=== PATIENT | female | born 1950 | race Caucasian/White ===

== ENCOUNTER 2017-12-07 11:12 | Outpatient (CLI) | payer BC | END 2017-12-07 11:13 | disposition home or self-care (01) | LOC: BICMAMMO 11:12 | PROVIDERS: ATTEND Internal Medicine | DX: Z12.31 Encounter for screening mammogram for malignant neoplasm of breast (principal); N63.20 Unspecified lump in the left breast, unspecified quadrant; Z80.3 Family history of malignant neoplasm of breast | CPT/HCPCS: 77063; 77067 ==

== ENCOUNTER 2017-12-09 10:17 | Outpatient (CLI) | payer BC | END 2017-12-09 10:18 | disposition home or self-care (01) | LOC: BICMAMMO 10:17 | PROVIDERS: ATTEND Internal Medicine | DX: N63.20 Unspecified lump in the left breast, unspecified quadrant (principal); Z80.3 Family history of malignant neoplasm of breast | CPT/HCPCS: G0279 ==

== ENCOUNTER 2021-02-22 11:39 | Outpatient (CLI) | payer BC | END 2021-02-22 11:40 | disposition home or self-care (01) | LOC: BICMAMMO 11:39 | PROVIDERS: ATTEND Internal Medicine | DX: Z12.31 Encounter for screening mammogram for malignant neoplasm of breast (principal); Z80.3 Family history of malignant neoplasm of breast | CPT/HCPCS: 77063; 77067 ==

== ENCOUNTER 2021-05-16 10:24 | Outpatient (CLI) | payer BC | END 2021-05-16 10:25 | disposition home or self-care (01) | LOC: BICRAD 10:24 | PROVIDERS: ATTEND Internal Medicine Pulmonary Disease | DX: R06.00 Dyspnea, unspecified (principal) | CPT/HCPCS: 71046 ==

== ENCOUNTER 2022-06-20 16:45 | Outpatient (CLI) | payer BC ==
[2022-06-20 17:49] LABS: #Basophils 0.1 10x3/uL (0.0-0.2); #Eosinphils 0.2 10x3/uL (0.0-0.5); #Monocytes 0.5 10x3/uL (0.0-1.1); %Basophils 0.8 % (0.0-2.0); %Eosinophils 2.8 % (0.0-6.0); %Lymphocytes 33.5 % (18.0-47.0); %Monocytes 6.8 % (0.0-10.0); %Neutrophils 55.8 % (40.0-75.0); Hemoglobin 11.7 g/dL (12.0-15.5); Mean Corpuscular HGB CONC 33.9 g/dL (32.0-36.0); Mean Corpuscular Hemoglobin 29.9 pg (27.0-33.0); Mean Corpuscular Volume 88.2 fl (81.6-98.3); Mean Platelet Volume 9.6 fl (7.4-10.4); Platelet Count 333 10x3/uL (150-450); RBC Distribution Width 12.6 % (11.5-14.5); Red Blood Cell (RBC) Count 3.91 10x6/uL (3.90-5.03); White Blood Cell (WBC) Count 7.2 10x3/uL (3.5-10.5)
[2022-06-20 18:09] LABS: Anion Gap 14 mmol/L (10-20); BUN (Urea Nitrogen) 17 mg/dL (9.8-20.1); Calc. Creatinine Clearance 0 mL/min (70-130); Calcium 9.9 mg/dL (7.8-10.44); Carbon Dioxide 25 mmol/L (23-31); Chloride 105 mmol/L (98-107); Estimated GFR 67; Glucose 94 mg/dL (80-115); Potassium 4.7 mmol/L (3.5-5.1); Sodium 139 mmol/L (136-145)
== END 2022-06-20 16:46 | disposition home or self-care (01) ==
LOC: LABBT 16:45
PROVIDERS: ATTEND Specialist
DX: Z01.818 Encounter for other preprocedural examination (principal); C50.912 Malignant neoplasm of unspecified site of left female breast
CPT/HCPCS: 80048; 85025; 93005; 93010

== ENCOUNTER 2022-06-24 07:33 | Day surgery (SDC) | payer BC ==
[2022-06-23 11:56] VITALS: BMI 31.5
[2022-06-24] MEDS ORDERED: Acetaminophen 500 MG TAB ONE (08:45)
[2022-06-24] MEDS ORDERED: Ketorolac Tromethamine 30 MG/ML VIAL ONE (08:45)
[2022-06-24] MEDS ORDERED: EPINEPHrine 1 MG/ML AMP ONE (10:26)
[2022-06-24] MEDS ORDERED: Bupivacaine 0.25% HCL 30 ML VIAL ONE (10:26)
[2022-06-24] MEDS ORDERED: Lidocaine 1% (PF) 30 ML VIAL ONE (10:26)
[2022-06-24] MEDS ORDERED: Midazolam HCl 2 mg/2 ml Vial ONE (10:26)
[2022-06-24] MEDS ORDERED: fentaNYL Citrate/PF 100 MCG/2 ML SYRINGE ONE (10:27)
[2022-06-24] MEDS ORDERED: Sodium Chloride 0.9% 100 ML ONE (10:34)
[2022-06-24] MEDS ORDERED: CEFAZOLIN 2 GM VIAL ONE (10:34)
[2022-06-24] MEDS ORDERED: PROPOFOL 200 MG/20 ML VIAL ONE (10:50)
== END 2022-06-24 12:45 | disposition home or self-care (01) ==
LOC: SDC 07:33
PROVIDERS: ATTEND Specialist
PROC: 0JH60WZ Insertion of Totally Implantable Vascular Access Device into Chest Subcutaneous Tissue and Fascia, Open Approach (ICD-10-PCS; principal; 2022-06-24)
PROC: 02HV33Z Insertion of Infusion Device into Superior Vena Cava, Percutaneous Approach (ICD-10-PCS; principal; 2022-06-24)
DX: C50.912 Malignant neoplasm of unspecified site of left female breast (principal); I10 Essential (primary) hypertension; E78.00 Pure hypercholesterolemia, unspecified; E03.9 Hypothyroidism, unspecified; Z17.0 Estrogen receptor positive status [ER+]; Z86.16 Personal history of COVID-19; Z79.890 Hormone replacement therapy; Z79.899 Other long term (current) drug therapy; Z88.0 Allergy status to penicillin
CPT/HCPCS: 71045; C1788; J0171; J0690; J1642; J1885; J2001; J2250; J2704; J3490; S0020

== ENCOUNTER 2022-10-13 11:45 | Outpatient (CLI) | payer BC ==
[2022-10-13 13:10] LABS: Mean Corpuscular HGB CONC 34.2 g/dL (32.0-36.0); Mean Corpuscular Volume 102.3 fl (81.6-98.3); Mean Platelet Volume 9.4 fl (7.4-10.4); Platelet Count 261 10x3/uL (150-450); RBC Distribution Width 16.9 % (11.5-14.5); Red Blood Cell (RBC) Count 2.57 10x6/uL (3.90-5.03); White Blood Cell (WBC) Count 8.2 10x3/uL (3.5-10.5)
[2022-10-13 13:15] LABS: Anion Gap 14 mmol/L (10-20); BUN (Urea Nitrogen) 20 mg/dL (9.8-20.1); Calc. Creatinine Clearance 0 mL/min (70-130); Calcium 9.7 mg/dL (7.8-10.44); Carbon Dioxide 24 mmol/L (23-31); Chloride 103 mmol/L (98-107); Estimated GFR 72; Glucose 130 mg/dL (80-115); Sodium 136 mmol/L (136-145)
[2022-10-13 13:22] LABS: MDiff Complete? YES
[2022-10-13 13:25] LABS: Band 4 % (5-11); Eosinophils 1 % (0-10); Lymphocytes 25 % (21-51); Monocytes 3 % (0-10); Neutrophil 67 % (42-75)
[2022-10-13 13:26] LABS: Platelet Morphology Comment Appears Adequate
[2022-10-13 13:27] LABS: Macrocytosis SLIGHT = 6-15 cells (100X) (0-5/hpf)
== END 2022-10-13 11:46 | disposition home or self-care (01) ==
LOC: LABBT 11:45
PROVIDERS: ATTEND Specialist
DX: Z01.812 Encounter for preprocedural laboratory examination (principal); C50.912 Malignant neoplasm of unspecified site of left female breast
CPT/HCPCS: 80048; 85025

== ENCOUNTER 2022-10-23 07:48 | Day surgery (SDC) | payer BC ==
[2022-10-21 11:14] VITALS: BMI 31.5
[2022-10-23] MEDS ORDERED: Acetaminophen 500 MG TAB ONE (09:29)
[2022-10-23] MEDS ORDERED: Ketorolac Tromethamine 30 MG/ML VIAL ONE (09:29)
[2022-10-23] MEDS ORDERED: Isosulfan Blue 50 MG/5 ML VIAL ONE (09:54)
[2022-10-23] MEDS ORDERED: Bupivacaine/Epinephrine 0.25% 30 ML VIAL ONE (09:54)
[2022-10-23] MEDS ORDERED: Lidocaine 1% (PF) 30 ML VIAL ONE (09:54)
[2022-10-23] MEDS ORDERED: CEFAZOLIN 2 GM VIAL ONE (10:08)
[2022-10-23] MEDS ORDERED: Sodium Chloride 0.9% 100 ML ONE (10:08)
[2022-10-23] MEDS ORDERED: fentaNYL PF 100 MCG/2 ML SYRINGE ONE (10:11)
[2022-10-23] MEDS ORDERED: Lidocaine 2% PF 5 ML VIAL ONE (10:17)
[2022-10-23] MEDS ORDERED: PHENYLEPHRINE-NS 100 MCG/ML 10 ML SYRINGE ONE (10:24)
[2022-10-23] MEDS ORDERED: Dexamethasone 20 MG/5 ML VIAL ONE (10:24)
[2022-10-23] MEDS ORDERED: Lidocaine 1% PF 5 ML VIAL ONE (10:24)
[2022-10-23] MEDS ORDERED: PROPOFOL 200 MG/20 ML VIAL ONE (10:24)
[2022-10-23] MEDS ORDERED: Ondansetron PF 4 MG/2 ML Vial ONE (10:24)
== END 2022-10-23 13:55 | disposition home or self-care (01) ==
LOC: SDC 07:48
PROVIDERS: ATTEND Specialist
PROC: 0HBU0ZZ Excision of Left Breast, Open Approach (ICD-10-PCS; principal; 2022-10-23)
PROC: 07B60ZX Excision of Left Axillary Lymphatic, Open Approach, Diagnostic (ICD-10-PCS; principal; 2022-10-23)
DX: C50.512 Malignant neoplasm of lower-outer quadrant of left female breast (principal); I10 Essential (primary) hypertension; E78.00 Pure hypercholesterolemia, unspecified; E03.9 Hypothyroidism, unspecified; Z17.0 Estrogen receptor positive status [ER+]; Z86.16 Personal history of COVID-19; Z79.890 Hormone replacement therapy; Z79.899 Other long term (current) drug therapy; Z88.0 Allergy status to penicillin
CPT/HCPCS: 76098; 78195; 88307; 88341; 88342; A9541; C1713; J1100; J1885; J2001; J2405; J2704; J3490; Q9968

== ENCOUNTER 2022-11-11 09:35 | Day surgery (SDC) | payer BC ==
[2022-11-07 12:00] VITALS: BMI 31.5
[2022-11-11] MEDS ORDERED: Ketorolac Tromethamine 30 MG/ML VIAL ONE (10:03)
[2022-11-11] MEDS ORDERED: Acetaminophen 500 MG TAB ONE (10:03)
[2022-11-11] MEDS ORDERED: fentaNYL PF 100 MCG/2 ML SYRINGE ONE (10:49)
[2022-11-11] MEDS ORDERED: Bupivacaine/Epinephrine 0.25% 30 ML VIAL ONE (10:52)
[2022-11-11] MEDS ORDERED: CEFAZOLIN 2 GM VIAL ONE (11:01)
[2022-11-11] MEDS ORDERED: Sodium Chloride 0.9% 100 ML ONE (11:01)
[2022-11-11] MEDS ORDERED: Ondansetron PF 4 MG/2 ML Vial ONE (11:12)
[2022-11-11] MEDS ORDERED: Dexamethasone 20 MG/5 ML VIAL ONE (11:12)
[2022-11-11] MEDS ORDERED: PHENYLEPHRINE-NS 100 MCG/ML 10 ML SYRINGE ONE (11:12)
[2022-11-11] MEDS ORDERED: Lidocaine 1% PF 5 ML VIAL ONE (11:12)
[2022-11-11] MEDS ORDERED: PROPOFOL 200 MG/20 ML VIAL ONE (11:12)
== END 2022-11-11 14:30 | disposition home or self-care (01) ==
LOC: SDC 09:35
PROVIDERS: ATTEND Specialist
PROC: 0HBU0ZZ Excision of Left Breast, Open Approach (ICD-10-PCS; principal; 2022-11-11)
DX: N60.32 Fibrosclerosis of left breast (principal); N60.22 Fibroadenosis of left breast; N64.89 Other specified disorders of breast; N60.21 Fibroadenosis of right breast; I10 Essential (primary) hypertension; E78.00 Pure hypercholesterolemia, unspecified; E03.9 Hypothyroidism, unspecified; J45.909 Unspecified asthma, uncomplicated; E55.9 Vitamin D deficiency, unspecified; Z88.0 Allergy status to penicillin; Z79.890 Hormone replacement therapy; Z79.899 Other long term (current) drug therapy
CPT/HCPCS: 88307; 88341; 88342; C1713; C1889; J1100; J1885; J2405; J2704; J3490

== ENCOUNTER 2022-12-10 08:00 | Outpatient (CLI) | payer BC ==
[2022-12-10] MEDS ORDERED: Iopamidol 370 76% 100 ML VIAL ONE (12:34)
== END 2022-12-10 08:01 | disposition home or self-care (01) ==
LOC: BICCT 08:00
PROVIDERS: ATTEND Radiology Radiation Oncology
DX: J98.59 Other diseases of mediastinum, not elsewhere classified (principal); E27.8 Other specified disorders of adrenal gland; K76.9 Liver disease, unspecified
CPT/HCPCS: 71260; Q9967

== ENCOUNTER 2023-07-09 10:15 | Outpatient (CLI) | payer BC | END 2023-07-09 10:16 | disposition home or self-care (01) | LOC: PET 10:15 | PROVIDERS: ATTEND Internal Medicine | DX: C50.412 Malignant neoplasm of upper-outer quadrant of left female breast (principal); R91.8 Other nonspecific abnormal finding of lung field; Z98.890 Other specified postprocedural states | CPT/HCPCS: 78815; A9552 ==